=== PATIENT | female | born 1995 | race African-American/Black ===

== ENCOUNTER 2016-03-25 06:06 | Inpatient (IN) | payer MEDICAID ==
[2016-03-25] MEDS ORDERED: OXYTOCIN 1,000 ML IV SCH (06:07)
[2016-03-25] MEDS ORDERED: LR 250 ML IV PRN (06:07)
[2016-03-25] MEDS ORDERED: BUTORPHANOL 1 MG/ML VIAL IV PRN (06:07)
[2016-03-25] MEDS ORDERED: LR 500 ML IV PRN ×2 (06:07→10:19)
[2016-03-25] MEDS ORDERED: LIDOCAINE 1% 30 ML VIAL (PRESERVATIVE FREE) ONE (06:14)
[2016-03-25 06:37] VITALS: BMI 34.0
[2016-03-25 06:37] LABS: AUTOMATED BASOPHIL 0.2 % (0-2); AUTOMATED EOSINOPHIL 0.8 % (0-5); AUTOMATED LYMPH 24.8 % (17-44); AUTOMATED MONOCYTE 7.9 % (3-10); AUTOMATED NEUTROPHIL 66.3 % (45-76); MPV 8.3 fL (7.4-10.4)
[2016-03-25] MEDS: LR 1,000 ML IV SCH ×2 (06:39→09:34)
[2016-03-25] MEDS ORDERED: Vaccine Screening Complete SCH (07:00)
[2016-03-25] MEDS ORDERED: Fentanyl/Bupivacaine 100 ML EPI ONE (09:22)
--- NOTE | 2016-03-25 09:29 | HISTPHYS ---
- HISTORY OF PRESENT ILLNESS Age: 21 Estimated Due Date: 03/25/16 Gestational Age: 40 : 3 Para: 1 Patient Presents to:: Labor & Delivery Presents for:: Induction of Labor Current : No Complications, GBS - - REVIEW OF SYSTEMS Reports/Denies: Reports: Contractions, Movement. Denies: Vaginal Bleeding , Leaking Fluid Pain: Reports: Well Managed - ALLERGIES Allergies Allergy/AdvReac Type Severity Reaction Status Date / Time No Known Allergies Allergy Verified 03/19/16 20:49 - PAST MEDICAL HISTORY hx of exzema - PAST SURGICAL HISTORY umbilical hernia repair - SOCIAL HISTORY Smoking Status: Never smoker Social History: Denies: Amphetamine Use, Alcohol Use, Barbiturate Use, Benzodiazipine Use, Cocaine Use, Heroin Use, Marijuana Use, Methadone Use, MDMA (Ecstasy) Use, Substance Use Disorder - GENITOURINARY HISTORY HX : 3 Para: 1 Live Deliveries (# of pregnancies resulting in a live ): 1 1 Sex: Female Weight: 6 Weeks Gestation: 39 - PHYSICAL EXAM Vital Signs:: Temperature: 98.2 F (03/25/16 06:39) HR: 79 (03/25/16 06:39) RR: 18 (03/25/16 06:39) BP: 132/80 (03/25/16 06:39) Pulse Ox: () 03/25/16 06:15 GENERAL: Alert, Oriented, No Acute Distress ABDOMEN: Gravid, Non-Distended, Non-Tender, Soft Fundal Height (cm): 39 GENITOURINARY: Normal. negative: Lesions, Mass, Rash MUSCULOSKELETAL: Normal EXTERMITIES: Moves All Extremeties Dilation (cm): 4 Effacement (%): 70 Station: -2 Heart Rate: 130's Moderate Variability Contractions: Regular Membranes: AROM Amniotic Fluid: Clear - ASSESSMENT (ACTIVE PROBLEMS) (1) 40 weeks gestation of Acute Z3A.40 - 40 WEEKS GESTATION OF (2) Elective induction of labor planned Acute [id number] - - PLAN High Dose Pitocin, Induction of Labor
[2016-03-25] MEDS ORDERED: DIPHENHYDRAMINE 50 MG/ML VIAL IV PRN (10:19)
[2016-03-25] MEDS ORDERED: METOCLOPRAMIDE 10 MG/2 ML VIAL IV PRN (10:19)
[2016-03-25] MEDS ORDERED: LR 500 ML IV ONE (10:19)
[2016-03-25] MEDS ORDERED: ONDANSETRON HCL 4 MG/2 ML VIAL IV PRN (10:19)
[2016-03-25] MEDS ORDERED: NALOXONE 0.4 MG/ML AMPULE IV PRN (10:19)
[2016-03-25] MEDS ORDERED: EPHEDrine 50 MG/ML VIAL IV PRN (10:19)
--- NOTE | 2016-03-25 10:21 | HIM.ANES ---
Anesthesia Evaluation & Plan Diagnoses: labor pain Consented Procedure: labor epidural - Focused Review of Systems Cardiac History: No: Hx Hypertension, Hx Cardiac Disorders HEENT: No: Loose/Decaying Teeth, Other HEENT Problems Respiratory: No: Hx Asthma Gastrointestinal: Yes: Hx Gastrointestinal Disorders Neurological/Musculoskeletal: No: Hx Neurological Disorders Psychological: No Hx Mental/Emotional Disorders Blood/Autoimmune: No: Hx Blood Transfusions Smoking Status: Never smoker Past Social History: Denies: Amphetamine Use, Alcohol Use, Barbiturate Use, Benzodiazipine Use, Cocaine Use, Heroin Use, Marijuana Use, Methadone Use, MDMA (Ecstasy) Use, Substance Use Disorder Other Surgical History: umbilical hernia as child - Focused Physical Exam NPO since: after Midnight Mallampati: Class II Thyromental Distance: Greater than 3 Neck: Full Range of Motion Dental: Normal - no significant findings Cardiovascular/Chest: Normal (RRR no mumurs or rubs.) Respiratory: Lungs clear. negative: Rhonchi, Wheezing Any problems with anesthesia, including nausea and vomiting?: No Any relatives with a history of Malignant Hyperthermia?: No Does patient have a history of Malignant Hyperthermia?: No Beta [place] given (if appropriate): N/A Does the patient have a history of Motion Sickness-: No Other: Problem List Problem Status Onset 40 weeks gestation of Acute Elective induction of labor planned Acute No leakage of amniotic fluid into vagina Acute care following vaginal delivery Acute Acute Term of female Acute Vaginal delivery Acute CBC/BMP/Other 03/25/16 06:15 Allergies Allergy/AdvReac Type Severity Reaction Status Date / Time No Known Allergies Allergy Verified 03/19/16 20:49 Home Medications Medication Instructions Recorded Last Taken Type Vits W-Ca,Fe,FA(<1Mg) 1 each PO DAILY 10/06/14 03/25/16 04:30 History [] Height and Weight Patient's height 5 ft 1 in Patient's weight 91.172 kg BMI 34.0 Vital Signs Temperature 98.2 F 03/25/16 06:39 Pulse Rate 79 03/25/16 06:39 Respiratory Rate 18 03/25/16 06:39 Blood Pressure 132/80 03/25/16 06:39 Pulse Oxygen Saturation METS - Level of Activity: Climbing stairs(1 flight),walking level ground, running short distance - Anesthetic Plan Anesthesia Type: Epidural ASA Class: 2 -: I have examined this patient and reviewed the medical record. The patient has been assessed prior to anesthesia. Risks and benefits of anesthesia and anesthetic technique options have been discussed and all questions answered. The patient accepts the risk and desires me to proceed with the planned anesthetic.
--- NOTE | 2016-03-25 10:23 | HIM.ANESP ---
Procedure Note DATE OF PROCEDURE: 03/25/16 PREOPERATIVE DIAGNOSIS: Labor Pain Control. POSTOPERATIVE DIAGNOSIS: Same PROCEDURE: Epidural PERFORMING PROVIDER: Kely Johnson MD DIAGNOSIS: Labor SURGEON: Wolfgang TIME OUT: 955 Anesthesia START time: 955 Anesthesia STOP (Delivery) Time : 12:13 MEDICATIONS: INF Bupivacaine 0.125% + Fentanyl 3mcg/ml ml/hr NEEDLE: Tuohy 17G STERILE BARRIERS: sterile x 3, mask, sterile gloves. APPROACH: Midline ATTEMPTS:1 COMPLICATIONS: None. BLOOD LOSS: 0 cubic centimeters. PROCEDURE FINDINGS AND TECHNIQUE: At the request of the patient and senior network engineer , an Epidural Block was performed for labor pain relief. Epidural Risk, benefits and alternatives of the procedure were explained and questions answered. Informed consent was obtained, confirmed with patient and on chart. Time out was performed. Contraction, Pulse oximetry, EKG and BP monitoring were established. The patient is a sitting position and lumbar area was prepped and draped in a sterile manner. Skin anesthesia was obtained with 1% Xylocaine infiltration. The Epidural was done in the usual manner. A Tuohy needle was inserted with loss of resistance to NS @ 6cm. Local anesthetic was injected in incremental volumes with negative aspirations throughout, Bolus dose: Lidocaine 1 % 5 cc. There was no pain on injection. Epidural catheter threaded 5 cm into epidural space. Test dose Lidocaine 1.5 % with epinephrine 1:200,000, 3 ml via epidural catheter. Negative test dose. SaO2 98% EKG SR Loading Dose 0 mcg/ml Fentanyl Infusing Dose Bupivacaine 0.125% + Fentanyl 3mcg/ml ml/hr See Watch Child Record (chart) Patient tolerated the procedure well without complications.
--- NOTE | 2016-03-25 10:33 | OBGYNPROG ---
- Exam Monitor Mode: External(US) Heart Rate: 120's Moderate Variability, Early Decelerations Contraction Pattern: Regular Contraction Frequency: q 2-3 min Vaginal Bleeding: None Dilation (cm): 5.5 Effacement (%): 80 Station: -2 Membranes: AROM Amniotic Fluid: Clear - Plan Continue High Dose Pitocin
[2016-03-25] MEDS ORDERED: Fentanyl/Bupivacaine 100 ML EPI SCH (11:00)
[2016-03-25] MEDS ORDERED: OXYTOCIN 1,000 ML IV ONE (12:57)
[2016-03-25] MEDS ORDERED: LANOLIN OINTMENT 0.25 OZ TUBE TOP PRN (12:57)
[2016-03-25] MEDS ORDERED: OXYCODONE HCL 5 MG TABLET PO PRN (12:57)
[2016-03-25] MEDS ORDERED: SODIUM CHLORIDE 0.9% 3 ML FLUSH FLUSH PRN (12:57)
[2016-03-25] MEDS ORDERED: ACETAMINOPHEN 325 MG/TAB TABLET PO PRN (12:57)
[2016-03-25] MEDS ORDERED: LANOLIN OINTMENT 0.25 OZ TUBE TOP ONE (12:57)
[2016-03-25] MEDS ORDERED: IBUPROFEN 800 MG TAB PO ONE (13:00)
[2016-03-25] MEDS ORDERED: Pharmacy Order Set Alert SCH (13:00)
--- NOTE | 2016-03-25 13:00 | OBDELNOTE ---
Delivery Note - Problem/Diagnosis (1) 40 weeks gestation of Status: Acute (2) Elective induction of labor planned Status: Acute (3) Single live Status: Acute (4) Vaginal delivery Status: Acute Comment: Doing well, precautions and restrictions discussed. - Admitting Diagnosis Reason for Visit: Induction of Labor Admission Date: 03/25/16 Admission time: 06:21 Gestational Age: 40 Labor Anesthesia/Analgesia: Epidural Date: 03/25/16 Time: 12:13 Spontaneous Vaginal Delivery Presentation: Vertex Episiotomy: None Laceration: None EBL: 300 Fluid: Clear Placenta: Expressed Description: Normal, Complete Cord: 3 Vessels. Denies: Nuchal Cord, True Knot - Procedures Procedures: None - Infant Data Order: Farooq Sex: Female Weight: 2.827 kg (1min): 8 (5min): 9 Feeding Plans for Infant: Breast [place] Complications: No Complications [place] to:: LDRP/Mother's Room - /Operative Complications /Op Complications: None Discharge Planning - REASON FOR ADMISSION Patient Presents to:: Labor & Delivery Reason for Visit: Induction of Labor - DISCHARGE INSTRUCTIONS
--- NOTE | 2016-03-25 13:03 | PCM.DCS92 ---
- Primary/Secondary Discharge Diagnoses (1) 40 weeks gestation of Acute Z3A.40 - 40 WEEKS GESTATION OF (2) Elective induction of labor planned Acute [id number] - (3) Single live Acute Z37.0 - SINGLE LIVE (4) Vaginal delivery Acute O80 - ENCOUNTER FOR FULL-TERM UNCOMPLICATED DELIVERY Comment: Doing well, precautions and restrictions discussed. - HOSPITAL COURSE /Op Complications: None - DISCHARGE INSTRUCTIONS Discharge Disposition: Home Discharge Condition: Good Cognitive Discharge Status: Unimpaired Fuctional Discharge Status: Independent Patient Leaving with Prescriptions?: Yes Home Medications/ New Prescriptions: New Ibuprofen Tablet [Motrin] 800 mg PO Q6-8H PRN #30 tab PRN Reason: Pain No Action Vits W-Ca,Fe,FA(<1Mg) [] 1 each PO DAILY Referrals: Laith Goss MD [Staff Physician] - Six Weeks - Diet Diet at Discharge: Regular - Activity Activity: Pelvic Rest (6-8 weeks) No Driving for: Other (1-2 weeks) - Instructions Call Physician for: Sudden/Sever Chest Pain, Foul Smelling Discharge, Pain/ Redness in Calf/Leg, Temperature Above 100.4 Discontinue use of:: Alcohol, All Illegal Substances, All Types of Tobacco - Incision Incision, Lacerations, or Tears: No - DC Summary Notes Discharge Medications: *See "Discharge Medication List" for a complete list of Home Medications and Discharge Medications.* Obstetric Hospital Course - Admitting Diagnosis Reason for Visit: Induction of Labor Admission Date: 03/25/16 Admission time: 06:21 Gestational Age: 40 Labor Anesthesia/Analgesia: Epidural Date: 03/25/16 Time: 12:13 Spontaneous Vaginal Delivery Presentation: Vertex Episiotomy: None Laceration: None EBL: 300 Fluid: Clear Placenta: Expressed Description: Normal, Complete Cord: 3 Vessels. Denies: Nuchal Cord, True Knot - Procedures Procedures: None - Data Order: Farooq Sex: Female Weight: 2.827 kg (1min): 8 (5min): 9 Feeding Plans for Infant: Breast [place] Complications: No Complications to:: LDRP/Mother's Room - /Operative Complications /Op Complications: None
[2016-03-25] MEDS ORDERED: LIDOCAINE 2% 10 ML (PRESERVATIVE FREE) VIAL INF ONE (13:29)
[2016-03-25] MEDS: IBUPROFEN 800 MG TAB PO SCH ×2 (14:41→21:44)
[2016-03-25] MEDS: FERROUS SULFATE 324 MG TAB PO SCH (17:52)
[2016-03-25] MEDS ORDERED: LR 1,000 ML IV SCH (19:57)
[2016-03-25] MEDS ORDERED: Docusate Sodium 100 MG CAP PO SCH (21:00)
[2016-03-26] MEDS: IBUPROFEN 800 MG TAB PO SCH ×3 (04:38→10:54)
[2016-03-26 05:55] VITALS: BP 137/80; PULSE 88; TEMP 97.9
[2016-03-26] MEDS ORDERED: TETANUS-DIPTHERIA-ACEL PERTUSS 0.5 ML SYR IM ONE (08:00)
[2016-03-26] MEDS: SODIUM CHLORIDE 0.9% 3 ML FLUSH FLUSH SCH ×2 (08:29→08:30)
[2016-03-26] MEDS: FERROUS SULFATE 324 MG TAB PO SCH (10:54)
--- NOTE | 2016-03-26 11:02 | OBGYNPROG ---
- Subjective Post Day: 1 Reports: Ambulating, Out of Bed, Tolerating Regular Diet, Voiding Freely, Light Bleeding. Denies: Complaints, Nausea, Vomitting Pain: Reports: Well Managed pt seen doing well - Objective Vital Signs: Last Vital Signs Temp 97.9 F 03/26/16 05:53 Pulse 88 03/26/16 05:53 Resp 18 03/26/16 05:53 BP 137/80 03/26/16 05:53 Pulse Ox H&H Results 03/26/16 03/25/16 05:40 06:15 Hgb 10.1 L D 11.4 L Hct 30.7 L 35.0 L General: Alert, Oriented, No Acute Distress ABDOMEN: Non-Distended, Non-Tender, Soft Fundus: U - 1, Firm MUSCULOSKELETAL: Normal EXTERMITIES: Moves All Extremeties BON'S SIGN: Denies: Bilateral OBGYN Progress Note - ASSESSMENT (1) 40 weeks gestation of Status: Acute Code(s): Z3A.40 - 40 WEEKS GESTATION OF (2) Elective induction of labor planned Status: Acute Code(s): IUO1356 - (3) Single live Status: Acute Code(s): Z37.0 - SINGLE LIVE (4) Vaginal delivery Status: Acute Code(s): O80 - ENCOUNTER FOR FULL-TERM UNCOMPLICATED DELIVERY (5) care following vaginal delivery Status: Acute Code(s): Z39.2 - ENCOUNTER FOR ROUTINE FOLLOW-UP - PLAN Discharge
[2016-03-26] MEDS ORDERED: VITAMINS,PRENATAL TABLET PO SCH (12:00)
== END 2016-03-26 13:30 | disposition home or self-care (01) | DRG 775 ==
LOC: MASU 06:06
PROVIDERS: ADMIT Obstetrics & Gynecology; ATTEND Obstetrics & Gynecology
PROC: 10E0XZZ Delivery of Products of Conception, External Approach (ICD-10-PCS; principal; 2016-03-25)
PROC: 10907ZC Drainage of Amniotic Fluid, Therapeutic from Products of Conception, Via Natural or Artificial Opening (ICD-10-PCS; 2016-03-25)
PROC: 3E033VJ Introduction of Other Hormone into Peripheral Vein, Percutaneous Approach (ICD-10-PCS; 2016-03-25)
PROC: 3E0S3CZ (ICD-10-PCS; 2016-03-25)
DX: O80 Encounter for full-term uncomplicated delivery (principal); Z23 Encounter for immunization; Z3A.40 40 weeks gestation of pregnancy; Z37.0 Single live birth
CPT/HCPCS: 59400; 62318; 81002; 85014; 85018; 85025; 86592; 86900; 86901; 90471; 90715; 96361; 96365; 96366; J2001; J2590; J3490